=== PATIENT | female | born 1985 | race Caucasian/White ===

== ENCOUNTER → 2016-04-15 | Outpatient (CLI) | payer OTHER ==
--- NOTE | 2016-04-15 14:01 | DI ---
US OB GTE 14 WEEKS,04/15/2016 10:40 AM: Clinical History: screening for malformations using ultrasonic Previous Exam: January 15, 2016 Findings: Multiple transabdominal grayscale and color Doppler sonographic images are obtained through the pelvi s demonstrating a single live intrauterine gestation in breech presentation. The amniotic fluid index is grossly normal. There is normal respiratory movement. Detected Doppler heart tones measure 132 beats per minute. The placenta is posterior and grade 2. biometry yields an estimated gestational age of 22 weeks zero days. Estimated weight was 454 g (58th percentile). Impression: Single live intrauterine gestation with size equal to dates. Normal anatomic survey.
== END ==
LOC: US 10:30
PROVIDERS: ATTEND Family Medicine
DX: Z36 Encounter for antenatal screening of mother (principal); Z3A.20 20 weeks gestation of pregnancy
CPT/HCPCS: 76805

== ENCOUNTER → 2016-05-30 | Outpatient (CLI) | payer OTHER ==
[2016-05-30 09:06] LABS: HEMATOCRIT 35.9 % (37.0-47.0); HEMOGLOBIN 12.3 g/dL (12.0-16.0); MEAN CORPUSCULAR HGB CONC 34.3 g/dL (33-37); MEAN CORPUSCULAR VOLUME 96.2 FL (81-99); MEAN PLATELET VOLUME 10.2 FL (7.4-12.2); RED BLOOD COUNT 3.73 10^6/uL (4.20-5.40)
--- NOTE | 2016-05-30 11:08 | DI ---
US OB , LIMITED,05/30/2016 9:21 AM: Clinical History: Uterine size date discrepancy. Previous Exam: None at this facility. Findings: Multiple grayscale and color Doppler sonographic images are obtained through the pelvis, and demonstr ate a normal amniotic fluid index measured 12.8 cm. There is normal motion within the limbs. Detected Doppler heart tones measure 138 beats per minute. Placenta is posterior and grade 2 without visible defects. The fetus is in vertex presentation. Estimated gestational age was determined by a composite of biparietal diameter, head circumference, a bdominal circumference and femur length yielding an estimated gestational age of ultrasound of 29 wee ks 3 days. Estimated weight was 1416 g (91st percentile). Impression: Single live intrauterine gestation with size 10 days greater than dates. (91st percentile).
== END ==
LOC: LAB 07:46
PROVIDERS: ATTEND Family Medicine
DX: Z36 Encounter for antenatal screening of mother (principal); O36.0130 Maternal care for anti-D [Rh] antibodies, third trimester, not applicable or unspecified; O26.843 Uterine size-date discrepancy, third trimester; Z3A.27 27 weeks gestation of pregnancy
CPT/HCPCS: 36415; 76815; 82950; 84443; 85027; 86850; 86900; 86901; G0463; J2790

== ENCOUNTER → 2016-07-24 | Outpatient (CLI) | payer OTHER ==
--- NOTE | 2016-07-24 12:27 | DI ---
US OB , LIMITED,07/24/2016 8:20 AM: Clinical History: Uterine size date discrepancy. Previous Exam: May 30, 2016 Findings: Transabdominal grayscale and color Doppler sonographic images are obtained through the pelvis demonst rating a single live intrauterine gestation in vertex presentation. Detected Doppler heart tones gomez ure 143 beats per minute. Amniotic fluid index is normal (70.2 cm). The cervix is long and closed measuring 4.8 cm in length. Estimated gestational age was determined by a composite of biparietal diameter, head circumference, a bdominal circumference and femur length yielding an estimated gestational age by ultrasound of 37 wee ks 6 days. Estimated weight is 3404 g (79th percentile). Impression: Single live intrauterine gestation with size equal to dates.
== END ==
LOC: US 08:17
PROVIDERS: ATTEND Family Medicine
DX: O26.843 Uterine size-date discrepancy, third trimester (principal); Z36 Encounter for antenatal screening of mother; Z3A.35 35 weeks gestation of pregnancy
CPT/HCPCS: 76815; 87150

== ENCOUNTER 2016-08-15 01:12 | Inpatient (IN) | payer OTHER ==
[2016-08-15] MEDS ORDERED: CefOXitin Inj 2 GM in Sodium Chloride 0.9% 100 ML IV PRN (04:38)
[2016-08-15] MEDS ORDERED: TERBUTALINE SULFATE 1 MG/1 ML SDV SUBCUT PRN (04:38)
[2016-08-15] MEDS ORDERED: NALOXONE 0.4 MG/1 ML VIAL IVP PRN (04:38)
[2016-08-15] MEDS ORDERED: ePHEDrine Inj 5 MG in Normal Saline Flush 1 ML IVP PRN (04:38)
[2016-08-15] MEDS ORDERED: diphenhydrAMINE 50 MG/1 ML VIAL IVP PRN ×2 (04:38→15:07)
[2016-08-15] MEDS ORDERED: NORMAL SALINE 10 ML SYRINGE FLUSH IVP PRN ×2 (04:38→15:07)
[2016-08-15] MEDS ORDERED: ONDANSETRON 4 MG/2 ML VIAL IVP PRN ×2 (04:38→15:07)
[2016-08-15] MEDS ORDERED: fentaNYL Inj 100 MCG/2 ML VIAL IV PRN (04:38)
[2016-08-15] MEDS ORDERED: OXYTOCIN 10 UNIT/1 ML IM PRN (04:38)
[2016-08-15] MEDS ORDERED: CITRIC ACID/SODIUM CITRATE 30 ML CUP PO PRN (04:38)
[2016-08-15] MEDS ORDERED: Famotidine Inj 20 MG in Normal Saline Flush 10 ML IVP PRN ×4 (04:38)
[2016-08-15] MEDS ORDERED: Metoclopramide Inj 10 MG/2 ML VIAL IV PRN (04:38)
[2016-08-15] MEDS ORDERED: Carboprost Inj 250 MCG/ML AMP IM PRN ×2 (04:38→15:07)
[2016-08-15] MEDS ORDERED: CALCIUM CARBONATE 500 MG (TUMS) CHEWABLE TABLET PO PRN ×2 (04:38→15:07)
[2016-08-15] MEDS ORDERED: BUTORPHANOL TARTRATE 2 MG/1 ML VIAL IVP PRN (04:38)
[2016-08-15] MEDS ORDERED: Nalbuphine Inj 20 MG/ML Ampule IVP PRN ×2 (04:38→15:07)
[2016-08-15] MEDS ORDERED: MISOPROSTOL 200 MCG TABLET RECTAL PRN (04:38)
[2016-08-15] MEDS ORDERED: Lidocaine 1% 10 MG/ML - 20 ML VIAL SUBCUT PRN (04:38)
[2016-08-15] MEDS ORDERED: Phenylephrine Inj 50 MCG in Normal Saline Flush 0.5 ML IVP PRN (04:38)
[2016-08-15] MEDS ORDERED: Naloxone Inj 0.01 MG in Normal Saline Flush 1 ML IVP PRN (04:38)
[2016-08-15] MEDS ORDERED: METHYLERGONOVINE MALEATE 0.2 MG/1 ML VIAL IM PRN ×2 (04:38→15:07)
[2016-08-15] MEDS ORDERED: Oxytocin 20 Units + LR 1,000 ML IV SCH ×3 (04:45→15:07)
[2016-08-15] MEDS ORDERED: LIDOCAINE W/ SODIUM BICARB 0.5 ML SYR SUBD PRN (05:00)
[2016-08-15 05:47] LABS: HEMATOCRIT 37.6 % (37.0-47.0); HEMOGLOBIN 12.9 g/dL (12.0-16.0); MEAN CORPUSCULAR HEMOGLOBIN 32.9 PG (27-31); MEAN CORPUSCULAR HGB CONC 34.3 g/dL (33-37); MEAN CORPUSCULAR VOLUME 95.9 FL (81-99); MEAN PLATELET VOLUME 10.8 FL (7.4-12.2); RED BLOOD COUNT 3.92 10^6/uL (4.20-5.40)
[2016-08-15] MEDS: Lactated Ringers-OB Dept 1,000 ML PRIMARY IV SCH ×3 (05:54→18:20)
[2016-08-15] MEDS ORDERED: Fent/Bupiv 2mcg/0.0625% Epid 250 ML ONE (09:55)
[2016-08-15] MEDS ORDERED: fentaNYL 2 MCG/BUPIVACAINE 0.0625%/NS 0.9% 250 ML BAG EPIDURAL ONE (10:16)
--- NOTE | 2016-08-15 10:16 | CRNA.PROCE ---
Central Neuraxis Block [facility] - - Safety Measures: Site Verified - - Type of Block: Epidural (Induction of labor requesting epidural for analgesia.) Reason for Block: Analgesia Moniters Used During Block: SPO2, NIBP Skin Prep Used: Betadine (Times 3.) Draped: Yes Skin Infiltration - Enter Amount Used in Comment Field: 1% Xylocaine (mL): Yes ( 1.0 ml) Introducer User: None Spinal Needle Used: 18 Hustead 80 mm (PATRICIA with saline. Took two tries, 1st catheter threading resulted in significant parasthesia so catheter removed and epidural space relocated.) Local Anesthetic - Enter Amount Used in Comment Field: 1.5 % Xylocaine with Epinephrine 1:200,000 (mL): Yes (4.0 ml) Number of Centimeters Catheter Threaded: 3.5 Bioclusive Dressing Applied: Yes (skin prep under op-site.) - - Additional Details: Negative test dose for SAB or IV. Placed on infusion . See orders. Pt reports analgesia equal bilaterally, not one sided. E- natals reviewed, not remarkable. Laboratory Results 08/15/16 Range/Units 05:38 WBC 7.75 (4.8-10.8) 10^3/uL RBC 3.92 L (4.20-5.40) 10^6/uL Hgb 12.9 (12.0-16.0) g/dL Hct 37.6 (37.0-47.0) % MCV 95.9 (81-99) FL MCH 32.9 H (27-31) PG MCHC 34.3 (33-37) g/dL RDW Std Deviation 43.5 (39-50) fL RDW Coeff of Chaparrita 12.8 (11.5-14.5) % Plt Count 171 (140-350) 10*3/uL MPV 10.8 (7.4-12.2) FL Blood Type A NEGATIVE Antibody Screen Negative
--- NOTE | 2016-08-15 10:30 | OB.PROGRES ---
Date and Time of Service: 08/15/16 @ 1005 Interval History: Pt is a 31 yo at 39 0/7 weeks by early u/s who presents today to labor and delivery for elective induction. She has had a few contractions as of late, but nothing like labor. Denies any vag bleeding or gushes of fluid. No abnormal discharge. Baby has been active. Objective - Cervical Exam Cervical Exam: /- [place]: contractions every 3 minutes, palpating moderate. Heart Rate: 135-140 baseline, + accels, moderate variability. Heart Rate Interpretation Category: Category I - Labs CBC and BMP: 08/15/16 05:38 Labs - Last 24 Hours: Laboratory Results 08/15/16 Range/Units 05:38 WBC 7.75 (4.8-10.8) 10^3/uL RBC 3.92 L (4.20-5.40) 10^6/uL Hgb 12.9 (12.0-16.0) g/dL Hct 37.6 (37.0-47.0) % MCV 95.9 (81-99) FL MCH 32.9 H (27-31) PG MCHC 34.3 (33-37) g/dL RDW Std Deviation 43.5 (39-50) fL RDW Coeff of Chaparrita 12.8 (11.5-14.5) % Plt Count 171 (140-350) 10*3/uL MPV 10.8 (7.4-12.2) FL Blood Type A NEGATIVE Antibody Screen Negative - Vital Signs Last Taken Vital Signs: Vital Signs - Last Taken Temperature 98.0 F 08/15/16 08:15 Pulse Rate 76 08/15/16 09:00 Respiratory Rate 18 08/15/16 10:00 Blood Pressure 121/78 08/15/16 09:00 Pulse Ox 100 08/15/16 10:09 Assessment and Plan - Patient Problems (1) Term Current Visit: Yes Status: Acute - Assessment / Plan Additional Assessment/Plan Details: -GBS negative. -rh negative. -rubella immune. -AROM completed with return of clear fluid. Continue pitocin augmentation. -expectant management.
--- NOTE | 2016-08-15 14:14 | OB.DEL.SUM ---
Delivery Note Delivery Summary: Pt is a 31 yo G4 now P4 at 39 0/7 weeks by early u/s who presented today for induction at 39 weeks secondary to a history of shoulder dystocia with her first baby at 40 weeks. She was 2-3/60/-2 on presentation, pitocin augmentation was started as pt was dhara some on her own. An epidural was placed and the pt underwent amniotomy with the return of clear fluid at 1012. She progressed through active labor on 2 mU of pitocin and was complete at 1333. She pushed for a short time to the delivery of a viable female at 1352 over an intact perineum. There was a tight nuchal cord x 1. The nose and mouth were suctioned with a bulb suction and the cord was doubly clamped by myself and cut by the father of the baby. She was placed on mom's chest. The placenta delivered spontaneously and intact with a 3 vessel cord at 1400. 20 mU of pitocin were infused IV. The vagina and perineum were examined and no lacerations were noted. Baby weighed 8#4.3 oz and was 20 inches long. Apgars were 8 at 1 minute and 10 at 5 minutes, off for color. Both mom and baby tolerated delivery well and are in stable condition at this time. - Patient Problems (1) Term Current Visit: Yes Status: Acute
[2016-08-15] MEDS ORDERED: diphenhydrAMINE 25 MG CAPSULE PO PRN (15:07)
[2016-08-15] MEDS ORDERED: ACETAMINOPHEN 325 MG TABLET PO PRN (15:07)
[2016-08-15] MEDS ORDERED: BENZOCAINE/MENTHOL SPRAY 56 GM BOTTLE TOPICAL PRN (15:07)
[2016-08-15] MEDS ORDERED: DIPH,PERTUSS,TET(ADACEL) VAC/PF 0.5 ML (Tdap) IM SCH (15:07)
[2016-08-15] MEDS ORDERED: OXYTOCIN 10 UNIT/1 ML IM ONE (15:07)
[2016-08-15] MEDS ORDERED: GLYCERIN/WITCH HAZEL 1 BOX TOPICAL PRN (15:07)
[2016-08-15] MEDS ORDERED: Methylergonovine Tab 0.2 MG TAB PO PRN (15:07)
[2016-08-15] MEDS ORDERED: LANOLIN HPA 40 GM TUBE TOPICAL PRN (15:07)
[2016-08-15] MEDS ORDERED: HYDROcodone-APAP 5 MG -325 MG TABLET PO PRN (15:07)
[2016-08-15] MEDS ORDERED: IBUPROFEN 800 MG TABLET PO PRN (15:07)
[2016-08-15] MEDS ORDERED: Ondansetron ODT Tab 4 MG TAB PO PRN (15:07)
[2016-08-15] MEDS ORDERED: MISOPROSTOL 200 MCG TABLET RECTAL ONE (15:07)
[2016-08-15] MEDS ORDERED: DOCUSATE 100 MG CAPSULE PO SCH (21:00)
[2016-08-16] MEDS ORDERED: D5-LR 1,000 ML PRIMARY IV SCH
[2016-08-16 05:26] LABS: HEMATOCRIT 32.1 % (37.0-47.0); MEAN CORPUSCULAR HEMOGLOBIN 33.3 PG (27-31); MEAN CORPUSCULAR HGB CONC 34.3 g/dL (33-37); MEAN CORPUSCULAR VOLUME 97.3 FL (81-99); RED BLOOD COUNT 3.3 10^6/uL (4.20-5.40)
[2016-08-16] MEDS ORDERED: LACTATED RINGERS 1000 ML PRIMARY IV SCH (08:00)
[2016-08-16] MEDS ORDERED: Prenatal Multivitamin Tab 1 TAB TAB PO SCH (09:00)
[2016-08-16] MEDS ORDERED: CITRIC ACID/SODIUM CITRATE 30 ML CUP PO ONE ×2 (09:16→09:22)
[2016-08-16] MEDS ORDERED: FAMOTIDINE 20 MG/2 ML VIAL IVP ONE (09:16)
[2016-08-16] MEDS ORDERED: LIDOCAINE 2%/ EPI 1:200,000 - 20 ML VIAL ONE (09:20)
[2016-08-16] MEDS ORDERED: Famotidine Inj 20 MG in Normal Saline Flush 10 ML IVP ONE (09:21)
[2016-08-16] MEDS ORDERED: MORPHINE SULFATE/PF 10 MG/10 ML AMPULE ONE (09:48)
--- NOTE | 2016-08-16 10:02 | OB.OP.NOTE ---
Operative Report Surgeon: Good Anesthesia Type: Regional Anesthesia Provider: Colin Wade CRNA Surgery Date: 08/16/16 Preoperative Diagnosis: Desires Sterilization Postoperative Diagnosis: Same Procedure: PPTL with Filshie Clips Estimated Blood Loss (mL): 0 Fluids: 700 ml Complications: None Findings at Surgery: Normal Fallopian Tubes. Indications for the Procedure: P4 female desires permanent sterilization. Description of Procedure: The previously placed and functioning epidural was dosed. The patient was taken to the operating room and placed supine. Adequacy of anesthesia was tested and found to be adequate. She was prepped and draped in the normal sterile fashion. Independence clamps were used to grasp the abdominal skin just inferior and lateral to the umbilicus on both sides. A scalpel was used to create a small incision between the Alvino clamps. Subcutaneous tissue and fascia were then divided with Bovie cautery and the peritoneal cavity was entered with Bovie cautery. A small Isael retractor was placed. The right fallopian tube cornua was identified and grasped with a [place] clamp. The fallopian tube was followed to the fimbriated end to verify fallopian tube rather than round ligament. A single Filshie clip was applied to the mid isthmic portion of the tube. The left fallopian tube was then identified in a similar manner followed to its fimbriated end. A single Filshie clip was applied to the mid isthmic portion of the left tube. Good hemostasis was noted on both tubes. The Isael retractor was then removed and the fascia was closed with a running 0 Vicryl suture on a UR 6 needle. The skin was then closed with absorbable wendy. The wound was appropriately dressed. There were no complications at surgery and the patient left to recovery in good condition. Plan: Routine post op care.
--- NOTE | 2016-08-16 10:21 | CRNA.PROGR ---
Anesthesia Note Anesthesia Progress Note: Sitting up in bed holding baby. Has no questions or concerns regarding epidural for REGINO and anesthetic course. Epidural was used for analgesia for PPTL and the dc'd intact. Laboratory Results 08/15/16 08/16/16 Range/Units 05:38 05:10 WBC 7.75 9.42 (4.8-10.8) 10^3/uL RBC 3.92 L 3.30 L (4.20-5.40) 10^6/uL Hgb 12.9 11.0 L (12.0-16.0) g/dL Hct 37.6 32.1 L (37.0-47.0) % MCV 95.9 97.3 (81-99) FL MCH 32.9 H 33.3 H (27-31) PG MCHC 34.3 34.3 (33-37) g/dL RDW Std Deviation 43.5 43.7 (39-50) fL RDW Coeff of Chaparrita 12.8 13.0 (11.5-14.5) % Plt Count 171 149 (140-350) 10*3/uL MPV 10.8 11.0 (7.4-12.2) FL Blood Type A NEGATIVE Antibody Screen Negative Vital Signs (Last 8 hours) Temp Pulse Pulse Resp BP Pulse Ox 08/16/16 08:20 87 08/16/16 05:13 98.1 F 71 18 107/70 94
[2016-08-16 11:08] VITALS: RESP 20
[2016-08-16 15:20] VITALS: TEMP 97.4
--- NOTE | 2016-08-16 15:32 | OB.PROGRES ---
Subjective Post Day: 1 Pain Management: PO [place]a [place] Catheter: No Flatus: Yes Diet: Regular Strawn Feeding Method: Exculsively Ambulating: Yes Concerns / Additional Information: Pt doing well after tubal ligation this morning. States that she is just a little bit sore. Lochia is mild. Baby is nursing well. Pt denies any chest pain , shortness of breath or calf pain. Objective - General General Appearance: POSITIVE: No Acute Distress, Cooperative - Cardiovacular Cardiovascular Exam: POSITIVE: RRR, No Murmur Edema: +1 Pedal Edema Extremities: Negative Jojo's - Bilaterally - Respiratory Respiratory Exam: POSITIVE: Clear to Auscultation - Bilaterally, Breathing Non Labored - Abdomen Bowel Sounds: Present Other Abdominal Exam Details: dressing present to umbilicus from PPTL Assesstment / Plan (1) Term Status: Acute (2) Status post vaginal delivery Status: Acute Assessment / Plan: -routine cares. -breast feeding going well. -rh negative--baby is A-, so pt will not need rhogam. -rubella immune. -PPTL complete for contraception. -d/c home today per pt request.
== END 2016-08-16 17:20 | disposition home or self-care (01) | DRG 767 ==
LOC: OBIP 05:00
PROVIDERS: ADMIT Family Medicine; ATTEND Family Medicine
PROC: 10E0XZZ Delivery of Products of Conception, External Approach (ICD-10-PCS; principal; 2016-08-15)
PROC: 0UL70CZ Occlusion of Bilateral Fallopian Tubes with Extraluminal Device, Open Approach (ICD-10-PCS; 2016-08-16)
DX: O80 Encounter for full-term uncomplicated delivery (principal); Z3A.39 39 weeks gestation of pregnancy; Z37.0 Single live birth; Z30.2 Encounter for sterilization
CPT/HCPCS: 36415; 81003; 85027; 86850; 86900; 86901; J2210; J3490; J7120; Q0163